=== PATIENT | male | born 1960 | race Caucasian/White ===

== ENCOUNTER 2018-07-17 13:18 | Observation (INO) ==
[2018-07-17] MEDS ORDERED: Bisacodyl 10 MG Supp RECTAL PRN (19:22)
[2018-07-17] MEDS ORDERED: Acetaminophen 325 MG Tablet PO PRN (19:22)
[2018-07-17] MEDS ORDERED: Dextrose 50% in Water 50 ML Vial IV.PUSH PRN (19:32)
--- NOTE | 2018-07-17 20:36 | P.HPIM ---
History of Present Illness Service: [facility] Primary Care Physician: No Primary Care Physician Chief Complaint: Increased pain and swelling in the right testicle History of Present Illness: Mr. Pugh is a pleasant 57-year-old male with a history of type 2 diabetes mellitus and a draining wound on his right testicle 6 months ago who presented to the emergency room and [facility] complaining of increasing right testicular pain and swelling. A testicular ultrasound done in [place] showed hyperemic soft tissue fullness in the right hemiscrotum without evidence of discrete abscess, small left epididymal cyst, small right varicocele, and normal testicles. The patient was transferred to [facility] for admission and observation. The patient is seen in the CDU. He states his symptoms began yesterday with increased swelling and pain to the right testicle. He states he had this happen 6 months ago but he was able to bring it to a head, pop it, and drain it -he received no professional medical care at that time. He denies any sexual partners other than his . He denies anal sex and in actuality he denies having any sex for the past 3 years. He denies having a sexually transmitted disease. He denies any recent fevers, chills, shortness of breath, chest pain, nausea, vomiting, or diarrhea. He states he is in fairly good health other than the diabetes mellitus. Review of Systems All other systems reviewed negative except as stated in HPI PMFSH - History History Provided By: Patient - Medical History Medical History: Medical History (Last Updated 07/17/18 @ 20:39 by SANDRO Rodriguez) Type 2 diabetes mellitus - Surgical History Surgical History: Surgical History (Last Reviewed 07/17/18 @ 20:39 by SANDRO Rodriguez) History of ankle surgery - Family History Family History: Family History (Last Reviewed 07/17/18 @ 20:39 by SANDRO Rodriguez) Mother Family history of diabetes mellitus Father Family history of diabetes mellitus - Social History I have reviewed the patient's Social History: Yes - Tobacco History Second Hand Smoke Exposure: No Smoking Status: Former smoker Tobacco Type: Cigarettes Smoking End Date: 5 years ago - Alcohol History How Often Do You Have a Drink Containing Alcohol: 4 or more times a week - Substance Use History Substance History: Active Abuse Medications and Allergies Active Medications: Active Medications Acetaminophen (Tylenol) 650 mg PO Q4H PRN PRN Reason: Temp > 100.4 Bisacodyl (Dulcolax Supp) 10 mg RECTAL DAILY PRN PRN Reason: SEVERE CONSITIPATION Dextrose (D50w Vial) 50 ml IV.PUSH UNSCH PRN PRN Reason: PER HYPOGLYCEMIA PROTOCOL Glucagon (Glucagon Inj) 1 mg OTHER PRN PRN PRN Reason: for Hypoglycemia Protocol Sodium Chloride (Ns Inj) 1,000 mls @ 100 mls/hr IV.CONT .Q10H BRUNIL[facility] Insulin Aspart (Novolog Insulin Correctional Sugar Inj) 0 unit SQ ACHS BRUNILDA; Protocol Ondansetron HCl (Zofran Inj) 4 mg IV.PUSH Q6H PRN PRN Reason: NAUSEA OR VOMITING Sennosides (Senokot) 17.2 mg PO Q12H PRN PRN Reason: Moderate Constipation Allergies Allergy/AdvReac Type Severity Reaction Status Date / Time No Known Allergies Allergy Verified 07/17/18 14:24 Home Medications Medication Instructions Recorded Confirmed Type metformin 1,000 mg PO DAILY 07/17/18 07/17/18 History Exam Vital signs: Vital Signs 07/17/18 20:00 Temperature 99.0 F Pulse Rate 81 Respiratory Rate 16 Blood Pressure 175/91 H Pulse Oximetry 94 L Narrative: GENERAL: This is a pleasant, obese elderly male patient, in no apparent distress. SKIN: -see genitourinary - no other lesions noted. HEAD: Atraumatic. Normocephalic. EYES: No scleral icterus. No injection or drainage. ENT: Nose without bleeding, purulent drainage. NECK: Trachea midline. CARDIOVASCULAR: Regular rate and rhythm without murmurs, gallops, or rubs. RESPIRATORY: Clear to auscultation. Breath sounds equal bilaterally. No wheezes , rales, or rhonchi. GASTROINTESTINAL: Abdomen soft, non-tender, nondistended. No guarding. MUSCULOSKELETAL: Extremities without clubbing, cyanosis, or edema. No calf tenderness. NEUROLOGICAL: Awake and alert. Motor and sensory grossly within normal limits. Normal speech. GENITOURINARY: Right distal testicle with erythema, a nodular area of swelling with a yellow discharge on the surface. The right testicle is very tender to palpation in this region. . Caprini VTE Risk Assessment Caprini VTE Risk Assessment: Moderate/High Risk (score >= 2) Caprini Risk Assessment Model: Point Value = 1 Point Value = 2 Point Value = 3 Point Value = 5 Age 41-60 Minor surgery BMI > 25 kg/m2 Swollen legs Varicose veins or History of unexplained or recurrent spontaneous Oral contraceptives or hormone replacement Sepsis (< 1 month) Serious lung disease, including pneumonia (< 1 month) Abnormal pulmonary function Acute myocardial infarction Congestive heart failure (< 1 month) History of inflammatory bowel disease Medical patient at bed rest Age 61-74 Arthroscopic surgery Major open surgery (> 45 min) Laparoscopic surgery (> 45 min) Malignancy Confined to bed (> 72 hours) Immobilizing plaster cast Central venous access Age >= 75 History of VTE Family history of VTE Factor V Leiden Prothrombin [id number] Lupus anticoagulant Anticardiolipin antibodies Elevated serum homocysteine Heparin-induced thrombocytopenia Other congenital or acquired thrombophilia Stroke (< 1 month) Elective arthroplasty Hip, pelvis, or leg fracture Acute spinal cord injury (< 1 month) Prophylaxis Regimen: Total Risk Factor Score Risk Level Prophylaxis Regimen 0-1 Low Early ambulation 2 Moderate Order ONE of the following: *Sequential Compression Device (SCD) *Heparin 5000 units SQ BID 3-4 Higher Order ONE of the following medications: *Heparin 5000 units SQ TID *Enoxaparin/Lovenox 40 mg SQ daily (WT < 150 kg, CrCl > 30 mL/min) *Enoxaparin/Lovenox 30 mg SQ daily (WT < 150 kg, CrCl > 10-29 mL/min) *Enoxaparin/Lovenox 30 mg SQ BID (WT < 150 kg, CrCl > 30 mL/min) AND/OR *Sequential Compression Device (SCD) 5 or more Highest Order ONE of the following medications: *Heparin 5000 units SQ TID (Preferred with Epidurals) *Enoxaparin/Lovenox 40 mg SQ daily (WT < 150 kg, CrCl > 30 mL/min) *Enoxaparin/Lovenox 30 mg SQ daily (WT < 150 kg, CrCl > 10-29 mL/min) *Enoxaparin/Lovenox 30 mg SQ BID (WT < 150 kg, CrCl > 30 mL/min) AND *Sequential Compression Device (SCD) Assessment and Plan - Plan Mr. Pugh is a pleasant 57-year-old male with a history of type 2 diabetes mellitus and a draining wound on his right testicle 6 months ago who presented to the emergency room and [place] complaining of increasing right testicular pain and swelling. A testicular ultrasound done in [place] showed hyperemic soft tissue fullness in the right hemiscrotum without evidence of discrete abscess, small left epididymal cyst, small right varicocele, and normal testicles. The patient was transferred to [facility] for admission and observation. Right scrotal cellulitis -A testicular ultrasound done in [place] showed hyperemic soft tissue fullness in the right hemiscrotum without evidence of discrete abscess, small left epididymal cyst, small right varicocele, and normal testicles. -Urology was consulted in the emergency room - case was discussed by emergency room provider with Dr. Watson -Levaquin 500 mg IV every 24 hours -switch to p.o. when ready for discharge -[employer] 5/325 every 4 hours as needed for pain -N.p.o. except medication until evaluated by urology -IVF hydration with NS at 100 cc/hr Type 2 Diabetes Mellitus -Hold metformin until after evaluated by urology -Accu-Cheks before meals and at bedtime with low-dose NovoLog sliding scale coverage -PRN Hypoglycemia protocol -Monitor trends and blood glucose readings and adjust treatments as indicated DVT prophylaxis -SCDs -Chemoprophylaxis on hold until patient is evaluated by urology Discussed Condition With: Dr. Willett, patient, and RN .
[2018-07-17] MEDS ORDERED: Zolpidem Tartrate 5 MG Tablet PO PRN (20:37)
[2018-07-17] MEDS: Sod Chloride 0.9% Inj 1,000 ML IV.CONT SCH (21:00)
[2018-07-17] MEDS: Insulin NovoLOG Aspart Correctional Sugar Inj SQ SCH (21:31)
[2018-07-18] MEDS: Levofloxacin 500 mg Premix Inj 500 MG/100 ML PIGGYBACK IV.SIG SCH (04:29)
[2018-07-18 07:37] LABS: Baso # (Auto) 0.1 th/mm3 (0.0-0.2); Baso % (Auto) 0.6 % (0.0-2.0); Eos # (Auto) 0.2 th/mm3 (0.0-0.4); Eos % (Auto) 1.6 % (0.0-4.0); Hematocrit 41.1 % (39.0-51.0); Hemoglobin 13.7 gm/dL (13.0-17.0); Lymph # (Auto) 1.6 th/mm3 (1.0-4.8); Lymph % (Auto) 13.5 % (9.0-44.0); Mean Corpuscular HGB Conc 33.5 % (32.0-36.0); Mean Corpuscular Hemoglobin 27.9 pg (27.0-34.0); Mean Corpuscular Volume 83.3 fL (80.0-100.0); Mean Platelet Volume 8.5 fL (7.0-11.0); Mono # (Auto) 1.2 th/mm3 (0.0-0.9); Mono % (Auto) 10.7 % (0.0-8.0); Neut # (Auto) 8.5 th/mm3 (1.8-7.7); Neut % (Auto) 73.6 % (16.0-70.0); Platelet Count 204 th/mm3 (150-450); Red Blood Count 4.93 mil/mm3 (4.50-5.90); Red Cell Distribution Width 12.9 % (11.6-17.2); White Blood Count 11.6 th/mm3 (4.0-11.0)
[2018-07-18 07:46] LABS: Calcium 8.3 mg/dL (8.5-10.1); Carbon Dioxide 23.8 meq/L (21.0-32.0); Potassium 4.1 meq/L (3.5-5.1)
[2018-07-18] MEDS: Insulin NovoLOG Aspart Correctional Sugar Inj SQ SCH ×4 (10:11→22:12)
[2018-07-18] MEDS: Sod Chloride 0.9% Inj 1,000 ML IV.CONT SCH ×2 (10:12→18:04)
--- NOTE | 2018-07-18 10:35 | MB ---
cc: Lebron Watson DO DATE: 07/18/2018 HISTORY OF PRESENT ILLNESS: This is a 57-year-old male, who presented to the [place] ER with 3-day history of right-sided testicular pain and swelling with erythema. The patient also had some drainage from his right hemiscrotum at the base. Ultrasound in the emergency room did not demonstrate any abscess formation or intratesticular mass. The patient has also has a history of type 2 diabetes, which is not well controlled. His admitting glucose to the [place] ER was in the 460 range. He states he voids every hour at night on the hour, which could be secondary to his diabetes being out of control. He does state he takes metformin. He does not have a primary care physician. PAST MEDICAL HISTORY: Noted for type 2 diabetes. PAST SURGICAL HISTORY: History of ankle surgery. FAMILY HISTORY: Negative for diabetes. SOCIAL HISTORY: Former smoker, quit 5 years ago. Drinks alcohol 4 times a week. Currently abuses drugs at times. MEDICATIONS: Refer to the chart. ALLERGIES: NO KNOWN DRUG ALLERGIES. REVIEW OF SYSTEMS: Notes right-sided testicular pain and swelling with some discharge noted at the hemiscrotal base. Notes nocturia every hour. Denies chest pain, shortness of breath, diarrhea, constipation, skin lesions, gait disturbances. Remaining review of systems reviewed and were negative. PHYSICAL EXAMINATION: VITAL SIGNS: This morning, 99.2 is his temp, his heart rate 82, respiratory rate 16, 141/88 blood pressure, 93% on room air. GENERAL: He is an obese, 57-year-old male in no acute distress. HEENT: Normocephalic, atraumatic. Pupils equal, round, regular, and reactive to light. Extraocular movements intact. NECK: Supple. HEART: Regular rate and rhythm. LUNGS: Clear. ABDOMEN: Soft, nontender, nondistended. GENITOURINARY: Normal phallus with right hemiscrotum erythema with a small opening at the base of the right hemiscrotum with some drainage. Testicle is slightly tender on exam, but not indurated. EXTREMITIES: Show no cyanosis, clubbing, or edema. NEUROLOGIC: Cranial nerves 2-12 are intact. DIAGNOSTIC DATA: White count 11.6, hemoglobin 13.7, hematocrit 41.7, platelet count of 204. Sodium 135, potassium 4.1, chloride 101, CO2 of 23.8, BUN of 13, creatinine 1.0, glucose is 269 this morning. Again, ultrasound of the right hemiscrotum shows hyperemic soft tissue fullness in the right hemiscrotum without evidence of discrete abscess. Small right varicocele. Normal testicles. ASSESSMENT AND PLAN: A 57-year-old male with type 2 diabetes, uncontrolled, with glucose in the 460 range on admission with right epididymitis/orchitis. Recommend continue IV antibiotics. We will need better glucose control. Will need assignment with primary care physician as an outpatient. Recommend sitz baths twice a day with Epsom salts to reduce inflammation. Thank you for the consult and allowing us to participate in the care of this patient. DO CLEMENTE Perez/gavin , 10:07 AM , 10:15 AM
--- NOTE | 2018-07-18 18:19 | P.PNIM ---
Subjective Interval history: no new complaints. not in pain. scrotum still swollen and red. Physical Exam Vital signs: Last Vital Signs Temp 98.4 F 07/18/18 15:50 Pulse 88 07/18/18 15:50 Resp 16 07/18/18 15:50 BP 152/90 H 07/18/18 15:50 Pulse Ox 92 L 07/18/18 15:50 Intake & Output 07/16/18 07/17/18 07/18/18 07/19/18 06:59 06:59 06:59 06:59 Intake Total 100 / 100 1999 Balance 100 100 1999 Weight 108.409 kg Narrative: GENERAL: This is a pleasant, obese elderly male patient, in no apparent distress. SKIN: -see genitourinary - no other lesions noted. HEENT:not pale,anicteric NECK: Trachea midline. CARDIOVASCULAR: Regular rate and rhythm without murmurs, gallops, or rubs. RESPIRATORY: Clear to auscultation. Breath sounds equal bilaterally. No wheezes , rales, or rhonchi. GASTROINTESTINAL: Abdomen soft, non-tender, nondistended. No guarding. MUSCULOSKELETAL: Extremities without clubbing, cyanosis, or edema. No calf tenderness. NEUROLOGICAL: Awake and alert. Motor and sensory grossly within normal limits. Normal speech. GENITOURINARY: Right distal testicle with erythema, a nodular area of swelling with a yellow discharge on the surface. The right testicle tender to palpation. . Results Labs CBC & Chem 7: 07/18/18 07:12 07/18/18 07:12 Assessment and Plan Plan 57-year-old male with a history of type 2 diabetes mellitus and a draining wound on his right testicle 6 months ago who presented to the emergency room and [place] complaining of increasing right testicular pain and swelling. A testicular ultrasound done in [place] showed hyperemic soft tissue fullness in the right hemiscrotum without evidence of discrete abscess, small left epididymal cyst, small right varicocele, and normal testicles. The patient was transferred to [facility] for admission and observation. 1.Right scrotal cellulitis -Levaquin 500 mg IV every 24 hours -switch to p.o. when ready for discharge -[place] 5/325 every 4 hours as needed for pain -obtain cultures from wound. -appreciate urology recs--IV abx and sitz baths 2.Type 2 Diabetes Mellitus blood glucose uncontrolled, will resume Metformin, keep on low Novolog sliding scale. -PRN Hypoglycemia protocol -check A1C level. DVT prophylaxis Progress Note: Quality VTE Deep Vein Thrombosis/Pulmonary Embolism Present on Admission: No
[2018-07-19] MEDS: Sod Chloride 0.9% Inj 1,000 ML IV.CONT SCH ×3 (01:54→22:13)
[2018-07-19] MEDS: Levofloxacin 500 mg Premix Inj 500 MG/100 ML PIGGYBACK IV.SIG SCH (03:25)
[2018-07-19] MEDS: Insulin NovoLOG Aspart Correctional Sugar Inj SQ SCH ×4 (08:35→22:12)
--- NOTE | 2018-07-19 09:00 | P.PNURO ---
Subjective Patient symptoms today: Pt seen and examined. Pt feeling better. Some drainage noted from right hemiscrotum. Pt receiving sitz baths with epson salts. Objective Vital Signs: Vital Signs 07/18/18 11:44 07/18/18 15:50 07/18/18 20:00 Temperature 99.2 F 98.4 F 98.7 F Pulse Rate 80 88 86 Respiratory Rate 16 16 17 Blood Pressure 156/98 H 152/90 H 157/91 H Pulse Oximetry 92 L 92 L 94 L 07/19/18 00:00 07/19/18 04:00 07/19/18 08:00 Temperature 98.5 F 98.8 F 97.5 F L Pulse Rate 70 74 72 Respiratory Rate 17 17 18 Blood Pressure 160/93 H 141/78 H 145/88 H Pulse Oximetry 95 92 L 94 L Intake & Output 07/18/18 07/19/18 07/19/18 18:59 06:59 18:59 Intake Total 1999 900 / 900 Balance 1999 900 / 900 Intake: IV 1999 900 / 900 NS Inj 1,000 ML @ 100 mls/hr IV 1999 800 / 800 .CONT .Q10H [facility] Rx#:[id number] Levaquin 500 mg Premix Inj 500 100 / 100 mg In 100 ml @ 100 mls/hr IV. SIG Q24H [facility] Rx#:[id number] Other: Date of Last Bowel Movement 07/17/18 07/17/18 Result Diagrams: 07/18/18 07:12 07/18/18 07:12 Medications and IVs: Active Medications Generic Name Dose Route Start Last Admin Trade Name Freq PRN Reason Stop Dose Admin Acetaminophen 650 mg 07/17/18 19:22 Tylenol PO Q4H PRN Temp > 100.4 Hydrocodone Bitart/Acetaminophen 1 tab 07/17/18 20:36 [place] 5/325 PO Q4H PRN pain > 3 Bisacodyl 10 mg 07/17/18 19:22 Dulcolax Supp RECTAL DAILY PRN SEVERE CONSITIPATION Dextrose 50 ml 07/17/18 19:32 D50w Vial IV.PUSH UNSCH PRN PER HYPOGLYCEMIA PROTOCOL Glucagon 1 mg 07/17/18 19:32 Glucagon Inj OTHER PRN PRN for Hypoglycemia Protocol Sodium Chloride 1,000 mls @ 100 mls/hr 07/17/18 19:30 07/19/18 01:54 Ns Inj IV.CONT 100 mls/hr .Q10H BRUNILDA Administration Levofloxacin/Dextrose 500 mg in 100 mls @ 100 mls/hr 07/18/18 03:00 07/19/18 04:25 Levaquin 500 Mg Premix Inj IV.SIG Infused Q24H [facility] Infusion Insulin Aspart 0 unit 07/17/18 21:00 07/19/18 08:35 Novolog Insulin Correctional Sugar Inj SQ 3 unit ACHS BRUNILDA Administration Protocol Magnesium Sulfate 0 gm 07/18/18 21:00 07/19/18 08:35 Epsom Salt TOPICAL 1 gm BID BRUNILDA Administration Metformin HCl 500 mg 07/19/18 09:00 07/19/18 08:35 Glucophage PO 500 mg BIDPC BRUNILDA Administration Sennosides 17.2 mg 07/17/18 19:22 Senokot PO Q12H PRN Moderate Constipation Zolpidem Tartrate 5 mg 07/17/18 20:37 Ambien PO HS PRN insomnia Objective Remarks: Abd:soft,nt,nd Right hemiscrotum: scrotal erythema improving. Some drainage noted. Assessment and Plan - Plan 57 y.o male with DM out of control with superficial scrotal abcess with epididymitis Continue sitz baths BID Once DM is better controlled would recommend discharge and continue with sitz baths BID F/U in office in 1 month.
[2018-07-19 09:10] LABS: Baso # (Auto) 0.1 th/mm3 (0.0-0.2); Baso % (Auto) 0.6 % (0.0-2.0); Eos # (Auto) 0.3 th/mm3 (0.0-0.4); Eos % (Auto) 3.1 % (0.0-4.0); Hematocrit 41.2 % (39.0-51.0); Hemoglobin 14.2 gm/dL (13.0-17.0); Lymph # (Auto) 1.8 th/mm3 (1.0-4.8); Lymph % (Auto) 21.1 % (9.0-44.0); Mean Corpuscular HGB Conc 34.5 % (32.0-36.0); Mean Corpuscular Hemoglobin 28.9 pg (27.0-34.0); Mean Corpuscular Volume 83.8 fL (80.0-100.0); Mean Platelet Volume 8.8 fL (7.0-11.0); Mono % (Auto) 11.2 % (0.0-8.0); Neut # (Auto) 5.5 th/mm3 (1.8-7.7); Platelet Count 187 th/mm3 (150-450); Red Blood Count 4.91 mil/mm3 (4.50-5.90); White Blood Count 8.7 th/mm3 (4.0-11.0)
[2018-07-19 09:31] LABS: Hemoglobin A1c 12.4 % (4.3-6.0)
--- NOTE | 2018-07-19 11:54 | P.PNIM ---
Subjective Interval history: still has rt scrotal pain especially on moving. Physical Exam Vital signs: Last Vital Signs Temp 97.5 F L 07/19/18 08:00 Pulse 72 07/19/18 08:00 Resp 18 07/19/18 08:00 BP 145/88 H 07/19/18 08:00 Pulse Ox 94 L 07/19/18 08:00 Intake & Output 07/17/18 07/18/18 07/19/18 07/20/18 06:59 06:59 06:59 06:59 Intake Total 100 / 100 2900 / 2900 Balance 100 / 100 2900 / 2900 Weight 108.409 kg Narrative: GENERAL: This is a pleasant, obese elderly male patient, in no apparent distress. SKIN: -see genitourinary - no other lesions noted. HEENT:not pale,anicteric NECK: Trachea midline. CARDIOVASCULAR: Regular rate and rhythm without murmurs, gallops, or rubs. RESPIRATORY: Clear to auscultation. Breath sounds equal bilaterally. No wheezes , rales, or rhonchi. GASTROINTESTINAL: Abdomen soft, non-tender, nondistended. No guarding. MUSCULOSKELETAL: Extremities without clubbing, cyanosis, or edema. No calf tenderness. NEUROLOGICAL: Awake and alert. Motor and sensory grossly within normal limits. Normal speech. GENITOURINARY: Right distal testicle with erythema, a nodular area of swelling with a yellow discharge on the surface. The right testicle tender to palpation. . Results Labs CBC & Chem 7: 07/19/18 08:00 07/18/18 07:12 Assessment and Plan Plan 57-year-old male with a history of type 2 diabetes mellitus and a draining wound on his right testicle 6 months ago who presented to the emergency room and [place] complaining of increasing right testicular pain and swelling. A testicular ultrasound done in [place] showed hyperemic soft tissue fullness in the right hemiscrotum without evidence of discrete abscess, small left epididymal cyst, small right varicocele, and normal testicles. The patient was transferred to [facility] for admission and observation. 1.Right scrotal cellulitis -Levaquin 500 mg IV every 24 hours -switch to p.o. when ready for discharge -[place] 5/325 every 4 hours as needed for pain -wound cultures pending. -appreciate urology recs--IV abx and sitz baths 2.Type 2 Diabetes Mellitus,A1C 12% blood glucose uncontrolled-in high 200's range. Patient had been on Metformin 1000mg bid and Glimepiride 4mg bid which he reports not taking for 2 years. resuming both. will discuss with patient regarding need for starting insulin given his high a1c. keep on low Novolog sliding scale. -PRN Hypoglycemia protocol. DVT prophylaxis Progress Note: Quality VTE Deep Vein Thrombosis/Pulmonary Embolism Present on Admission: No
[2018-07-19] MEDS: Glimepiride 2 MG Tablet PO SCH (17:42)
[2018-07-20] MEDS: Levofloxacin 500 mg Premix Inj 500 MG/100 ML PIGGYBACK IV.SIG SCH (03:26)
[2018-07-20] MEDS: Sod Chloride 0.9% Inj 1,000 ML IV.CONT SCH (08:25)
--- NOTE | 2018-07-20 09:10 | P.DS ---
Date of admission: 07/17/18 19:49 Primary care physician: No Primary Care Physician Brief History from admission: Mr. Pugh is a pleasant 57-year-old male with a history of type 2 diabetes mellitus and a draining wound on his right testicle 6 months ago who presented to the emergency room and [facility] complaining of increasing right testicular pain and swelling. A testicular ultrasound done in [place] showed hyperemic soft tissue fullness in the right hemiscrotum without evidence of discrete abscess, small left epididymal cyst, small right varicocele, and normal testicles. The patient was transferred to [facility] for admission and observation. The patient is seen in the CDU. He states his symptoms began yesterday with increased swelling and pain to the right testicle. He states he had this happen 6 months ago but he was able to bring it to a head, pop it, and drain it -he received no professional medical care at that time. He denies any sexual partners other than his . He denies anal sex and in actuality he denies having any sex for the past 3 years. He denies having a sexually transmitted disease. He denies any recent fevers, chills, shortness of breath, chest pain, nausea, vomiting, or diarrhea. He states he is in fairly good health other than the diabetes mellitus. DS: Medications - Discharge Medications Prescriptions: amoxicillin-pot clavulanate [Augmentin] 1 tab PO BID #14 tab Lactobacillus acidophilus 500 mmu cells PO TID #30 cap sulfamethoxazole-trimethoprim [Bactrim DS] 1 tab PO BID #14 tab DS: Summary Hospital Course: Mr. Pugh is a 57-year-old male. He has a past history of scrotal abscess and came into the emergency department with scrotal cellulitis. No evidence of abscesses on imaging. She has been treated with Levaquin with improvement through time. Cultures have resulted showing group B strep and with antibiotics has been on he has been having improvement through time. At this point with physical exam there is no evidence of a drainable abscess today. Augmentin will be provided for coverage of group B strep. For possible coinfection of MRSA Bactrim will be provided. Probiotics provided while on antibiotics. The patient is medically stable and cleared for discharge home today. - Time Spent with Patient Total time spent providing and/or coordinating discharge services: Less than 30 minutes - Quality: VTE Deep Vein Thrombosis/Pulmonary Embolism Present on Admission: No Exam Vital signs: Vital Signs 07/19/18 12:00 07/19/18 15:59 07/19/18 20:00 Temperature 97.8 F 98.8 F 98.7 F Pulse Rate 63 73 70 Respiratory Rate 18 16 17 Blood Pressure 170/88 H 146/90 H 152/86 H Pulse Oximetry 95 95 95 07/19/18 23:33 07/20/18 04:00 07/20/18 08:00 Temperature 98.5 F 98.6 F 97.6 F Pulse Rate 70 69 74 Respiratory Rate 17 17 16 Blood Pressure 148/88 H 150/86 H 160/86 H Pulse Oximetry 95 95 93 L Intake & Output 07/19/18 07/20/18 07/20/18 18:59 06:59 18:59 Intake Total 1000 / 1000 1100 / 1100 1000 / 1000 Balance 1000 / 1000 1100 / 1100 1000 / 1000 Intake: IV 1000 / 1000 1100 / 1100 1000 / 1000 NS Inj 1,000 ML @ 100 mls/hr IV 1000 / 1000 1000 / 1000 1000 / 1000 .CONT .Q10H [facility] Rx#:[id number] Levaquin 500 mg Premix Inj 500 100 / 100 mg In 100 ml @ 100 mls/hr IV. SIG Q24H [facility] Rx#:[id number] Other: Date of Last Bowel Movement 07/19/18 Results Procedures completed during hospitalization: None Labs on day of discharge: Labs from last 24 hours 07/19/18 07/19/18 07/19/18 20:48 16:58 12:04 WBC RBC Hgb Hct MCV MCH MCHC RDW Plt Count MPV Neut % (Auto) Lymph % (Auto) [place] % (Auto) Eos % (Auto) Baso % (Auto) Neut # (Auto) Lymph # (Auto) [place] # (Auto) Eos # (Auto) Baso # (Auto) WBC Differential Differential Comment POC Glucose 231 H 202 H 224 H Hemoglobin A1c 07/19/18 07/18/18 08:00 07:12 WBC 8.7 RBC 4.91 Hgb 14.2 Hct 41.2 MCV 83.8 MCH 28.9 MCHC 34.5 RDW 13.0 Plt Count 187 MPV 8.8 Neut % (Auto) 64.0 Lymph % (Auto) 21.1 [place] % (Auto) 11.2 H Eos % (Auto) 3.1 Baso % (Auto) 0.6 Neut # (Auto) 5.5 Lymph # (Auto) 1.8 [place] # (Auto) 1.0 H Eos # (Auto) 0.3 Baso # (Auto) 0.1 WBC Differential . Differential Comment Auto diff final POC Glucose Hemoglobin A1c 12.4 H Preliminary micro results at discharge 07/18/18 18:35 Wound Culture - Preliminary Wound - Groin Group B beta Strep Discharge Plan - Discharge Disposition Patient Disposition: 01 Discharge Home - Discharge Condition Condition: Stable - Discharge Order Discharge Orders: Discharge Order (Routine); Ordered 07/20/18 Ordered By: Adam Theodore - Discharge Details Anticipated Discharge Date: 07/20/18 - Physicians Team Primary Care Provider: Primary Anastasiya Glaser Attending Provider: Adam Theodore Other Providers: Lebron Watson DO - Rxs /Orders / Referrals /Forms Prescriptions: New amoxicillin-pot clavulanate [Augmentin] 875-125 mg Tablet 1 tab PO BID Qty: 14 RF: 0 Lactobacillus acidophilus Capsule 500 mmu cells PO TID Qty: 30 RF: 0 sulfamethoxazole-trimethoprim [Bactrim DS] 800-160 mg Tablet 1 tab PO BID Qty: 14 RF: 0 Continue metformin 1,000 mg Tablet 1,000 mg PO DAILY Referrals: Primary Care Anastasiya Guthrie [Primary Care Provider] - See Instructions
[2018-07-20] MEDS: Glimepiride 2 MG Tablet PO SCH (09:33)
[2018-07-20] MEDS: Insulin NovoLOG Aspart Correctional Sugar Inj SQ SCH (09:34)
== END 2018-07-20 13:07 | disposition home or self-care (01) ==
LOC: NEDDLT 13:18 → NEPGCP 13:18
PROVIDERS: ADMIT Hospitalist; ATTEND Hospitalist